=== PATIENT | female | born 1960 | race Caucasian/White ===

== ENCOUNTER → 2024-08-08 09:00 | Outpatient (REF) | payer MEDICARE, OTHER, SELFPAY | LOC: CLAB 09:00 | PROVIDERS: ATTENDING PHYSICIAN Student in an Organized Health Care Education/Training Program | DX: M21.40 Flat foot [pes planus] (acquired), unspecified foot (principal) | CPT/HCPCS: 88304 ==

== ENCOUNTER → 2024-09-17 10:49 | Outpatient (REF) | payer MEDICARE, OTHER, SELFPAY | LOC: HWWDC 10:49 | PROVIDERS: ATTENDING PHYSICIAN Obstetrics & Gynecology; FAMILY PHYSICIAN Nurse Practitioner | DX: Z12.31 Encounter for screening mammogram for malignant neoplasm of breast (principal) | CPT/HCPCS: 77063; 77067 ==

== ENCOUNTER 2024-09-24 06:18 | Day surgery (SDC) | payer MEDICARE, OTHER, SELFPAY | END 2024-09-24 09:35 | disposition home or self-care (01) | LOC: GI 06:18 | PROVIDERS: ATTENDING PHYSICIAN Surgery | DX: Z12.11 Encounter for screening for malignant neoplasm of colon (principal); K57.30 Diverticulosis of large intestine without perforation or abscess without bleeding; K64.9 Unspecified hemorrhoids; Z80.0 Family history of malignant neoplasm of digestive organs | CPT/HCPCS: 46221; G0105 ==

== ENCOUNTER → 2025-06-12 18:45 | Outpatient (REF) | payer MEDICARE, OTHER, SELFPAY | LOC: CLAB 18:45 | PROVIDERS: ATTENDING PHYSICIAN Student in an Organized Health Care Education/Training Program | DX: R22.41 Localized swelling, mass and lump, right lower limb (principal) | CPT/HCPCS: 88304 ==